=== PATIENT | female | born 1955 | race Caucasian/White ===

== ENCOUNTER → 2016-06-28 | Day surgery (SDC) | payer OTHER ==
[~2016-06-28] MED LIST: BUPIVACAINE HCL PF 0.5% 30 ML VIAL ONE; ISOSULFAN BLUE 50 MG/5 ML VIAL SQ ONE; KETOROLAC TROMETHAMINE 30 MG/ML (IVP) VIAL ONE; LACTATED RINGER'S 1000 ML INJ 1,000 ML ONE; MIDAZOLAM HCL 2 MG/2 ML VIAL ONE; ONDANSETRON HCL 4 MG/2 ML VIAL IV PUSH ONE; PROPOFOL 200 MG/20 ML AMP IV ONE; SODIUM CHLORIDE 0.9% INJ 10 ML ONE; ceFAZolin 2 GM PREMIX 50 ML ONE
--- NOTE | 2016-06-28 13:23 | TN ---
cc: MERE ENG DATE OF SURGERY: 06/28/2016 PREOPERATIVE DIAGNOSIS Left breast cancer. POSTOPERATIVE DIAGNOSIS Left breast cancer. PROCEDURE PERFORMED Left breast needle-localized lumpectomy, attempted left axillary sentinel lymph node biopsy, left axillary lymph node sampling. SURGEON Mere Eng ANESTHESIA General via LMA device. INDICATION The patient is a 61-year-old female with a newly diagnosed clinical stage I left breast cancer. She desires breast conservation and now presents for the procedure. FINDINGS At the time of surgery no sentinel lymph node was identified with either a radioactive count or blue lymphatics. There was also no palpable adenopathy. A specimen mammogram did demonstrate an intact wire and the biopsy clip and lesion were within the removed tissue. PROCEDURE After informed consent was obtained and site verification was performed, the patient was brought to the radiology suite where she underwent needle localization of her cancer which was located at 12 o'clock 3 cm from the nipple in the left breast, and this was done using ultrasound guidance. She then underwent peritumoral radionuclide injection. She was brought into the major operating room where she underwent general anesthesia via an LMA device. She was given a single dose of IV Ancef and sequential compression hose were placed. Two cc's of half-strength Lymphazurin were injected in the subareolar left breast and a five-minute massage was performed. The left breast and arm were then prepped and draped in sterile fashion. An incision was anesthetized at the inferior aspect of the left axillary hairline and both sharp and electrocautery dissection were performed until the clavipectoral fascia was divided and the level I axilla was entered. There were no blue lymphatics or palpable adenopathy and there was minimal radioactive count in the axilla. A sampling was performed by removing five central level I lymph nodes by circumferential dissection using the Harmonic scalpel. The axillary vein, thoracodorsal, long thoracic, and medial pectoral neurovascular bundles were all identified and remained intact throughout the dissection. The axillary tissue was sent as a permanent specimen and good hemostasis was noted. The wound was closed using interrupted 3-0 Vicryl subcutaneous sutures and a 4-0 Monocryl subcuticular suture. Attention was turned to the left breast where a wire was identified in the upper outer left breast. A periareolar skin incision was anesthetized and incised sharply. The wire entry point through the skin was identified using blunt dissection and the wire was secured with a hemostat. The wire was cut off at the skin with pin cutters and a 2-0 silk transfixion suture was placed at the wire entry point into the breast tissue. Both sharp and circumferential dissection were then performed around the wire and the specimen was oriented with two sutures laterally, one long suture anteriorly, and one short suture superiorly. Inspection of the specimen did demonstrate that the anterior and lateral margins appeared close. The lumpectomy specimen was sent to radiology where the clip and lesion were identified and it was then sent for permanent pathologic evaluation. The anterior and lateral margins were each sharply read excised with a stitch on the new margin and each of these were sent separately as new permanent margins. Hemostasis was obtained using electrocautery. The cavity in the breast was noted to be between 50 and 60 cc in volume. A medial catheter site was marked on the left breast between 9 and 10 o'clock and the wound was closed using interrupted 3-0 Vicryl subcutaneous sutures and a 4-0 Monocryl subcuticular suture. Steri-Strips and a sterile dressing were applied to both wounds. The patient tolerated the procedure well with an estimated blood loss of 100 cc. She was extubated in the operating room and brought to the recovery room in good condition. All sponge and needle counts were correct at the conclusion of the case. MD SHIMA Dean/AIDEN /1:05 PM /1:16 PM
== END | disposition home or self-care (01) ==
LOC: ESDC 07:24
PROVIDERS: ATTEND Surgery
DX: C50.912 Malignant neoplasm of unspecified site of left female breast (principal)
CPT/HCPCS: 00400; 01610; 19125; 38525; 38792; 88307; J0690; J1885; J2250; J2405; J3010; J7120; Q9968